=== PATIENT | female | born 1955 | race Caucasian/White ===

== ENCOUNTER 2021-01-24 05:52 | Emergency (ER) | payer MEDICARE, OTHER ==
[~2021-01-24] VITALS: Ht 177.8 cm; Wt 122.6 kg
[2021-01-24] MEDS ORDERED: ASPIRIN CHEWABLE 81 MG TABLET. PO ONE (06:15)
--- NOTE | 2021-01-24 06:17 | PHYS DOC ---
Past History Past Medical History: DVT, Other (Pulmonary embolism on chronic anticoagulation with Xarelto) Smoking: Non-smoker Adult General Chief Complaint Chief Complaint: CHEST PAIN [facility] HPI Patient is a 65-year-old female presenting for chest pain. She reports this is an acute on chronic phenomenon. Reports she was attempting to fall asleep and while at rest proximately 3 hours ago developed substernal chest pain. Chest pain described as pressure with mild radiation to left breast. Nothing known made better or worse. She attempted to take Tums as it felt like indigestion at first without relief. Acute episode self resolved in less than 15 minutes, states pain was 7-8 out of 10 and is currently a 4 out of 10. Patient contemplated whether she needed to come in or not but ultimately was fearful of worsened prognosis prompting her to come in for medical evaluation. She has no prior cardiac history, has seen a manager instrumentation numerous times for preoperative clearance for surgeries without issue but has not had any provocative cardiac testing in the past. She does not smoke or have first-degree relatives with early cardiac disease. She does has history of DVT and pulmonary embolism suffered 10 years ago for which she has been taking Xarelto for, no other anticoagulants/antiplatelets. Also reports degenerative disc disease in the neck with nerve impingement and pain radiate down left arm and history of costochondritis Review of Systems Review of Systems Fourteen body systems of review of systems have been reviewed. See HPI for pertinent positives and negative responses, other carranza all other systems are negative, non-pertinent or non-contributory Allergies Allergies Allergies Coded Allergies Type Severity Reaction Last Updated Verified guaifenesin Allergy Intermediate Hives 01/24/21 Yes Physical Exam Physical Exam Constitutional: Well developed, well nourished, no acute distress, non-toxic appearance. HENT: Normocephalic, atraumatic, bilateral external ears normal, oropharynx moist, no oral exudates, nose normal. Eyes: PERRLA, EOMI, conjunctiva normal, no discharge. Neck: Normal range of motion, no tenderness, supple, no stridor. Cardiovascular: Heart rate regular, sinus rhythm, no murmurs rubs or gallops Lungs & Thorax: Bilateral breath sounds clear to auscultation Abdomen: Bowel sounds normal, soft, no tenderness, no masses, no pulsatile masses. Nonsurgical abdomen, no peritoneal signs Skin: Warm, dry, no erythema, no rash. Back: No tenderness, no CVA tenderness. Extremities: No tenderness, no cyanosis, no clubbing, ROM intact, no edema. Neurologic: Alert and oriented X 3, grossly normal motor & sensory function, no focal deficits noted. Psychologic: Affect normal, judgement normal, mood normal. Current Patient Data Lab Results Laboratory Tests Test 01/24/21 06:05 White Blood Count 4.8 x10^3/uL Red Blood Count 4.31 x10^6/uL Hemoglobin 14.3 g/dL Hematocrit 42.7 % Mean Corpuscular Volume 99 fL Mean Corpuscular Hemoglobin 33 pg Mean Corpuscular Hemoglobin Concent 34 g/dL Red Cell Distribution Width 14.0 % Platelet Count 190 x10^3/uL Neutrophils (%) (Auto) 53 % Lymphocytes (%) (Auto) 33 % Monocytes (%) (Auto) 9 % Eosinophils (%) (Auto) 4 % Basophils (%) (Auto) 1 % Neutrophils # (Auto) 2.6 x10^3uL Lymphocytes # (Auto) 1.6 x10^3/uL Monocytes # (Auto) 0.4 x10^3/uL Eosinophils # (Auto) 0.2 x10^3/uL Basophils # (Auto) 0.0 x10^3/uL Sodium Level 144 mmol/L Potassium Level 3.7 mmol/L Chloride Level 107 mmol/L Carbon Dioxide Level 30 mmol/L Anion Gap 7 Blood Urea Nitrogen 16 mg/dL Creatinine 1.0 mg/dL Estimated GFR (Cockcroft-Gault) 55.3 Glucose Level 108 mg/dL Calcium Level 9.4 mg/dL Troponin I Quantitative < 0.017 ng/mL [id number] Natriuretic Peptide 77 pg/mL Current Medications Medications (Trade) Dose Ordered Sig/Pati Route PRN Reason Start Time Stop Time Status Last Admin Dose Admin Aspirin (Aspirin Chewable) 162 mg 1X ONCE PO 01/24/21 06:15 01/24/21 06:35 DC 01/24/21 06:32 EKG EKG EKG ordered and interpreted by myself at 0603 hrs. as sinus rhythm at 63 bpm, prolonged NJ interval at 210 otherwise unremarkable intervals, no axis deviation, no acute ischemic findings, no STEMI Repeat EKG ordered approximately 30 minutes after arrival and interpreted by myself at 0635 hrs. as sinus rhythm at 58 bpm, NJ interval 200 otherwise unremarkable intervals, no axis deviation, no acute ischemic findings, no STEMI, unchanged from presenting EKG Radiology/Procedures Radiology/Procedures PROCEDURE: PORTABLE CHEST 1V Exam performed: One view chest. Indication: Reason: chest pain / Spl. Instructions: / History: Date of Service: 01/24/2021 6:15 AM Comparison: None available. Single AP upright portable view chest findings: Cardiomediastinal silhouette is within limits of normal. No acute infiltrates, effusion or pneumothorax is detected. The bony structures are normal. Impression: No acute cardiopulmonary process is detected. Electronically signed by: Yolanda Baldwin MD (01/24/2021 7:15 AM) [facility] Heart Score C/O Chest Pain: Yes HEART Score for Chest Pain: HEART Score for Chest Pain Response (Comments) Value History Slighlty/Non-Suspicious 0 ECG Normal 0 Age > 65 2 Risk Factors 1 or 2 Risk Factors 1 Troponin < Normal Limit 0 Total 3 Risk Factors: Risk Factors: DM, Current or recent (<one month) smoker, HTN, HLP, family history of CAD, obesity. Risk Scores: Risk Factors: DM, Current or recent (<one month) smoker, HTN, HLP, family history of CAD, obesity. Course & Med Decision Making Course & Med Decision Making Hemodynamically stable patient presenting with grossly nonconcerning history and physical exam 162 mg aspirin administered in comprehensive ER work-up pursued. Subsequent work-up grossly nonconcerning Reevaluated patient who had continued improvement in symptoms despite no intervention. Discussed patient case at length. Reviewed heart score. Reviewed potential plans of care that such as admission for cardiac observation versus discharge home with close PCP follow-up Patient states she has had negative stress and echo testing performed 2 years ago preoperatively on reexamination. States she will be able to see PCP and have this arranged again which I feel is appropriate this upcoming week Ultimately, I offered cardiac observation but patient declined. Strict return precautions were discussed at length with patient and spouse with good understanding by both. All questions and concerns addressed prior to departure home in stable condition Dragon Disclaimer Dragon Disclaimer This electronic medical record was generated, in whole or in part, using a voice recognition dictation system. Departure Departure: Impression: Primary Impression: Chest pain, unspecified Disposition: 01 DC HOME SELF CARE/HOMELESS Condition: STABLE Referrals: MICHAEL BEDOYA MD (PCP) Patient Instructions: Chest Pain (Nonspecific) Additional Instructions: You were seen for chest pain. Your workup did not show any acute abnormalities today, but does not indicate that you do not have underlying cardiovascular disease. You do need to follow up with your primary doctor and/or manager instrumentation for further evaluation and treatment. You should return to the ED if you develop worsening chest pain, shortness of breath, fever, abnormal sweating, leg swelling, or any other new or concerning symptoms. It was a pleasure to take care of you and I wish you the best moving forward ISABELA ISIDRO DO Jan 24, 2021 06:16
[2021-01-24 06:28] LABS: CALCIUM 9.4 mg/dL (8.5-10.1); GFR 55.3; POTASSIUM 3.7 mmol/L (3.5-5.1)
[2021-01-24 06:32] LABS: BASO % 1 % (0-3); EOS # 0.2 x10^3/uL (0.0-0.7); EOS % 4 % (0-3); HEMATOCRIT 42.7 % (36.0-47.0); HEMOGLOBIN 14.3 g/dL (12.0-15.5); LYMPH # 1.6 x10^3/uL (1.0-4.8); LYMPH % 33 % (24-48); MEAN CORPUSCULAR HEMOGLOBIN 33 pg (25-35); MEAN CORPUSCULAR HGB CONC 34 g/dL (31-37); MEAN CORPUSCULAR VOLUME 99 fL (79-100); MONO # 0.4 x10^3/uL (0.0-1.1); MONO % 9 % (0-9); NEUT # 2.6 x10^3uL (1.8-7.7); NEUT % 53 % (31-73); PLATELET COUNT 190 x10^3/uL (140-400); RED BLOOD COUNT 4.31 x10^6/uL (3.50-5.40); WHITE BLOOD COUNT 4.8 x10^3/uL (4.0-11.0)
--- NOTE | 2021-01-24 06:54 | EKG ---
[facility] ED [facility] [place] [id number] Test Date: 2021-01-24 Test Time: 06:27:15 Pat Name: MAIA HERNANDEZ Department: Room: Gender: F Commissary Manager: : 1955 Requested By: ISABELA ISIDRO Order Number: [id number] Reading MD: Measurements Intervals Kane Rate: 58 P: 56 ME: 200 QRS: 28 QRSD: 98 T: 34 QT: 424 QTc: 420 Interpretive Statements SINUS RHYTHM NORMAL ECG RI6.02 No previous ECG available for comparison
--- NOTE | 2021-01-24 06:54 | EKG ---
[address] [address] Test Date: 2021-01-24 Test Time: 06:00:58 Pat Name: MAIA HERNANDEZ Department: Room: Gender: F Lab Aide: : 1955 Requested By: ISABELA ISIDRO Order Number: [id number] Reading MD: Measurements Intervals Willard Rate: 63 P: 60 CT: 210 QRS: 30 QRSD: 98 T: 40 QT: 422 QTc: 435 Interpretive Statements SINUS RHYTHM ATRIAL PREMATURE COMPLEX(ES) OTHERWISE NORMAL ECG RI6.02 No previous ECG available for comparison
--- NOTE | 2021-01-24 07:18 | RAD ---
Exam performed: One view chest. Indication: Reason: chest pain / Spl. Instructions: / History: Date of Service: 01/24/2021 6:15 AM Comparison: None available. Single AP upright portable view chest findings: Cardiomediastinal silhouette is within limits of normal. No acute infiltrates, effusion or pneumotho rax is detected. The bony structures are normal. Impression: No acute cardiopulmonary process is detected. Electronically signed by: Yolanda Baldwin MD (01/24/2021 7:15 AM) [facility]
[2021-01-24 07:31] VITALS: BP 136/74
== END 2021-01-24 07:37 | disposition home or self-care (01) ==
LOC: ER 05:52
DX: R07.2 Precordial pain (principal); Z86.718 Personal history of other venous thrombosis and embolism; Z86.711 Personal history of pulmonary embolism; Z88.8 Allergy status to other drugs, medicaments and biological substances; Z79.01 Long term (current) use of anticoagulants
CPT/HCPCS: 36415; 71045; 80048; 83880; 84484; 85025; 93005; 99285-25